=== PATIENT | female | born 2000 | race Two or more races ===

== ENCOUNTER 2021-12-06 05:05 | Day surgery (SDC) | payer OTHER ==
[~2021-12-06] VITALS: Ht 154.9 cm; Wt 67.1 kg
[~2021-12-06 05:05] MED LIST: LEVOTHYROXINE25 MCG PO
[2021-12-06] MEDS ORDERED: DICLOFENAC SOD100 MG (08:08)
== END 2021-12-06 11:55 | disposition home or self-care (01) ==
LOC: CIR.AMB 05:05 → O/R 05:05 → OB/GYN 05:05 → EDSTATUS 09:30 → O/R 11:55 → CIR.AMB 11:55
PROVIDERS: ATTEND Obstetrics & Gynecology
DX: N80.0 Endometriosis of uterus (principal); Z20.822 Contact with and (suspected) exposure to COVID-19

== ENCOUNTER 2022-02-08 09:48 | Emergency (ER) | payer OTHER ==
[~2022-02-08] VITALS: Ht 154.9 cm; Wt 67.6 kg
[~2022-02-08 09:48] MED LIST changes: +DICLOFENAC SOD100 MG
== END 2022-02-08 15:43 | disposition home or self-care (01) ==
LOC: ER 09:48
DX: N80.9 Endometriosis, unspecified (principal); N93.9 Abnormal uterine and vaginal bleeding, unspecified

== ENCOUNTER 2022-07-27 12:46 | Emergency (ER) | payer OTHER ==
[~2022-07-27] VITALS: Ht 154.9 cm; Wt 64.0 kg
[2022-07-27] MEDS ORDERED: PIRMELLA 1-351 EACH PO (13:26)
== END 2022-07-27 21:14 | disposition home or self-care (01) ==
LOC: ER 12:46
DX: R11.10 Vomiting, unspecified (principal); N93.8 Other specified abnormal uterine and vaginal bleeding

== ENCOUNTER 2023-03-02 09:50 | Emergency (ER) | payer OTHER ==
[~2023-03-02] VITALS: Ht 154.9 cm; Wt 59.0 kg
[~2023-03-02 09:50] MED LIST changes: +PIRMELLA 1-351 EACH PO
[2023-03-02 13:21] LABS: HEMATOCRIT 41.9 % (36.0-45.00); HEMOGLOBIN 14.1 g/dL (12.0-15.00); MEAN CORPUSCULAR HEMOGLOBIN 29.6 pg (27.00-32.0); MEAN CORPUSCULAR HGB CONC 33.6 g/dl (32.0-36.0); PLATELET COUNT 211 K/uL (150-450); RED BLOOD COUNT 4.76 M/uL (4.00-6.00)
[2023-03-02 13:29] LABS: URINE APPEARANCE Cloudy; URINE BILIRRUBIN Negative (NEGATIVE); URINE BLOOD Negative; URINE COLOR Yellow; URINE GLUCOSE Negative (NEGATIVE); URINE LEUKOCYTE Large; URINE NITRATE Negative; URINE PROTEIN 30 (NEGATIVE)
[2023-03-02 13:31] LABS: URINE EPITHELIAL CELLS 60.2 uL (0.0-38.8); URINE WBC 987.9 uL (0.0-23.2)
[2023-03-02 14:03] LABS: ALBUMIN 4.1 gm/dL (3.4-5.0); BILIRUBIN TOTAL 0.47 mg/dL (0.3-1.2); CALCIUM 9.2 mg/dL (8.5-10.1); CREATININE SERUM 0.59 mg/dL (0.55-1.02); GFR 126.31; GLOBULINA 3.7 G/DL (2.4-3.5); POTASSIUM 4.26 mEq/L (3.5-5.1); TOTAL PROTEIN 7.8 gm/dL (6.4-8.2)
[2023-03-02] MEDS ORDERED: ZOVIRAX30 GM TOP (16:08)
[2023-03-02] MEDS ORDERED: CIPRO500 MG PO (16:09)
== END 2023-03-02 18:13 | disposition home or self-care (01) ==
LOC: ER 09:51
PROVIDERS: General Practice
DX: R10.2 Pelvic and perineal pain (principal); N39.0 Urinary tract infection, site not specified; N80.8 Other endometriosis; E03.9 Hypothyroidism, unspecified; L73.9 Follicular disorder, unspecified

== ENCOUNTER 2024-06-07 13:50 | Emergency (ER) | payer OTHER ==
[~2024-06-07] VITALS: Ht 154.9 cm; Wt 56.7 kg
[~2024-06-07 13:50] MED LIST changes: +CIPRO500 MG PO; +ZOVIRAX30 GM TOP
[2024-06-07 15:38] LABS: MEAN CORPUSCULAR HEMOGLOBIN 30.7 pg (27.00-32.0); MEAN CORPUSCULAR HGB CONC 34.1 g/dl (32.0-36.0); PLATELET COUNT 270 K/uL (150-450); RED BLOOD COUNT 4.23 M/uL (4.00-6.00); RED CELL DISTRIBUTION WIDTH 13.6 % (11.5-14.5)
[2024-06-07 15:59] LABS: CALCIUM 8.6 mg/dL (8.5-10.1); CREATININE SERUM 0.47 mg/dL (0.55-1.02); GFR 162.8; POTASSIUM 5.04 mEq/L (3.5-5.1)
[2024-06-07 16:15] LABS: PH,URINE 7.5 (5.0-8.0); URINE APPEARANCE Clear; URINE BILIRRUBIN Negative (NEGATIVE); URINE BLOOD Negative; URINE COLOR Yellow; URINE GLUCOSE Negative (NEGATIVE); URINE KETONE Negative (NEGATIVE); URINE LEUKOCYTE Negative; URINE NITRATE Negative; URINE PROTEIN Negative (NEGATIVE); URINE UROBILINOGEN 0.2 E.U./dl
[2024-06-07 16:19] LABS: URINE BACTERIA 1010.8 uL (0.0-1933); URINE EPITHELIAL CELLS 41.9 uL (0.0-38.8); URINE RBC 2.7 uL (0.0-20.8); URINE WBC 23.8 uL (0.0-23.2)
[2024-06-07 16:35] LABS: ALBUMIN 3.9 gm/dL (3.4-5.0); BILIRUBIN TOTAL 1.27 mg/dL (0.3-1.2); BILIRUBIN,CONJUGATED 0.32 mg/dL (0.0-0.2); BILIRUBIN,UNCONJUGATED 0.95 mg/dL (0.0-0.6); TOTAL PROTEIN 6.9 gm/dL (6.4-8.2)
[2024-06-07] MEDS ORDERED: ONDANSETRON ODT8 MG PO (17:17)
== END 2024-06-07 18:00 | disposition home or self-care (01) ==
LOC: ER 13:51
PROVIDERS: Emergency Medicine; General Practice
DX: O26.891 Other specified pregnancy related conditions, first trimester (principal); R10.9 Unspecified abdominal pain; Z3A.01 Less than 8 weeks gestation of pregnancy

== ENCOUNTER 2024-07-30 20:16 | Emergency (ER) | payer OTHER ==
[~2024-07-30] VITALS: Ht 154.9 cm; Wt 57.2 kg
[~2024-07-30 20:16] MED LIST changes: +ONDANSETRON ODT8 MG PO
[2024-07-30] MEDS ORDERED: LEVOTHYROXINE25 MC1 PO (20:49)
[2024-07-30 21:31] LABS: HEMATOCRIT 34.3 % (34.1-44.9); RED BLOOD COUNT 3.91 M/uL (3.93-5.22)
[2024-07-30 21:32] LABS: BASO % 0.3 % (0.1-1.2); EOS # 0.36 (0.04-0.54); EOS % 3.5 % (0.7-7.0); LYMPH # 2.28 (1.18-3.74); LYMPH % 22.1 % (19.3-53.1); MEAN CORPUSCULAR HEMOGLOBIN 30.7 pg (25.6-32.2); MONO # 0.82 (0.24-0.82); NEUT # 6.79 (1.56-6.13); NEUT % 65.9 % (34.0-71.1); PLATELET COUNT 237 K/uL (163-369); RED CELL DISTRIBUTION WIDTH 12.9 % (11.6-14.4)
== END 2024-07-31 00:52 ==
LOC: ER 20:38
PROVIDERS: Emergency Medicine
DX: O20.9 Hemorrhage in early pregnancy, unspecified (principal); O99.281 Endocrine, nutritional and metabolic diseases complicating pregnancy, first trimester; Z3A.12 12 weeks gestation of pregnancy